=== PATIENT | male | born 1945 | race African-American/Black ===

== ENCOUNTER 2019-08-30 02:30 | Observation (INO) ==
[2019-08-30] MEDS ORDERED: oxyCODONE/ACETAMINOPHEN 5-325 MG TABLET PO PRN (04:25)
[2019-08-30] MEDS ORDERED: ACETAMINOPHEN 325 MG TABLET PO PRN (04:25)
[2019-08-30] MEDS ORDERED: SODIUM CHLORIDE 0.9% 1,000 ML IV STA (04:25)
[2019-08-30] MEDS ORDERED: ONDANSETRON 4 MG/2 ML VIAL IV PRN (04:25)
[2019-08-30 09:03] LABS: Basophils % 0.2 % (0.0-0.8); Hematocrit 28.5 VOL% (42.0-52.0); Hemoglobin 8.7 GM/DL (14.0-18.0); Immature Granulocytes % 0.5 %; Immature Granulocytes Absolute 0.03 #; Lymphocytes # 0.4 10*3/uL (1.4-4.0); Mean Corpuscular HGB Conc 30.5 GM/DL (32-36); Mean Corpuscular Volume 100.7 FL (87-102); Mean Platelet Volume 11.1 FL (9.6-12.0); Monocytes % 7.9 % (1.7-12.7); Neutrophils % 84.4 % (38.7-73.9); Platelet Count 142 T/CUMM (130-400); Red Blood Count 2.83 MC/CUMM (3.8-5.5); White Blood Count 5.7 T/CUMM (4-12)
[2019-08-30 09:24] LABS: Albumin 2.9 G/DL (3.4-5.0); Bilirubin,Total 0.4 MG/DL (0.2-1.0); Calcium 6.6 MG/DL (8.5-10.1); Osmolality,Calculated 290.4 MOS/KG (273-304); Total Protein 6.6 G/DL (6.4-8.3)
[2019-08-30] MEDS ORDERED: BACITRACIN OINT 0.9 GM PACK TOP SCH (11:30)
[2019-08-30] MEDS: PANTOPRAZOLE 40 MG TABLET PO SCH (11:34)
[2019-08-30] MEDS: CALCIUM ACETATE 667 MG CAPSULE PO SCH ×2 (13:04→18:59)
[2019-08-30] MEDS: BACITRACIN OINT 28.35 GM TUBE TOP SCH (18:59)
[2019-08-31 08:17] VITALS: BP 111/65
[2019-08-31] MEDS ORDERED: ASPIRIN EC 81 MG TABLET PO SCH (09:00)
[2019-08-31] MEDS ORDERED: amLODIPine 10 MG TABLET PO SCH (09:00)
[2019-08-31] MEDS: BACITRACIN OINT 28.35 GM TUBE TOP SCH (09:14)
[2019-08-31] MEDS: CALCIUM ACETATE 667 MG CAPSULE PO SCH (09:14)
[2019-08-31] MEDS: PANTOPRAZOLE 40 MG TABLET PO SCH (09:15)
== END 2019-08-31 09:50 | disposition home health service (06) ==
LOC: N.ED 02:30 → N.EDINP 02:30 → N.3E 06:25
PROVIDERS: ADMIT Student in an Organized Health Care Education/Training Program; ATTEND Student in an Organized Health Care Education/Training Program